=== PATIENT | male | born 1930 | race Asian ===

== ENCOUNTER 2018-06-04 11:37 | Emergency (ER) | payer OTHER, MEDICARE ==
[~2018-06-04] VITALS: Ht 170.2 cm; Wt 59.0 kg
[2018-06-04 11:49] VITALS: Ht 170.2 cm; Wt 59.0 kg
[2018-06-04 15:18] VITALS: BP 124/81
== END 2018-06-04 15:18 | disposition home or self-care (01) ==
LOC: ED 11:37
DX: S93.402A Sprain of unspecified ligament of left ankle, initial encounter (principal); S20.211A Contusion of right front wall of thorax, initial encounter; S09.8XXA Other specified injuries of head, initial encounter; L97.329 Non-pressure chronic ulcer of left ankle with unspecified severity; M19.90 Unspecified osteoarthritis, unspecified site; E78.5 Hyperlipidemia, unspecified; W18.11XA Fall from or off toilet without subsequent striking against object, initial encounter; Y93.89 Activity, other specified; Y92.091 Bathroom in other non-institutional residence as the place of occurrence of the external cause; Y99.8 Other external cause status